=== PATIENT | female | born 1955 | race Caucasian/White ===

== ENCOUNTER 2019-09-26 04:53 | Inpatient (IN) | payer MEDICARE, OTHER, SELFPAY ==
--- NOTE | ~2019-09-26 | XR_ITS ---
EXAMINATION: XR abdomen/kub 1V DATE: 09/28/2019 05:41 INDICATION: Small bowel obstruction TECHNIQUE: A supine view of the abdomen on 2 radiographs was obtained. COMPARISON: Studies dated 09/27/2019 FINDINGS: Interval advancement of oral contrast material which is not distributed throughout the colon. Minimal dilute contrast in the small bowel. No dilated loops of bowel to suggest residual obstruction. Sever e lower lumbar facet osteoarthritis. Osteitis pubis. IMPRESSION: 1. Resolution of prior small bowel obstruction. Reviewed, dictated and finalized at location A. ATION REPORTER
--- NOTE | ~2019-09-26 | XR_ITS ---
EXAMINATION: XR abdomen NG/feed tube insert DATE: 09/26/2019 07:12 INDICATION: Nasogastric tube placement. TECHNIQUE: An upright view of the abdomen was obtained. COMPARISON: Abdomen radiographs 10/09/2018, CT abdomen and pelvis 09/26/2019 FINDINGS: The lower abdomen is excluded. There are multiple dilated loops of small bowel. The colon i s decompressed. The nasogastric tube tip is in the stomach. IMPRESSION: 1. Nasogastric tube tip in the stomach. 2. Small bowel obstruction. Reviewed, dictated and finalized at location A. DRESSER
--- NOTE | ~2019-09-26 | CT_ITS ---
EXAMINATION: CT abdomen pelvis w con DATE: 09/26/2019 05:49 INDICATION: Abdominal pain. Nausea and vomiting. TECHNIQUE: Computed tomography (CT) of the abdomen and pelvis was performed with 100 mL Omnipaque 350 intravenous contrast. Automated exposure control and iterative reconstruction technique were employe d. The dose-length product was 943.80 mGy-cm. COMPARISON: CT abdomen and pelvis 10/08/2018, 10/25/2010 FINDINGS: The visualized portions of the lung bases demonstrate mild atelectasis. No pleural effusion . The heart size is normal. No pericardial effusion. There is a small sliding hiatal hernia. There is a 7 mm cyst in the liver. The gallbladder is normal. There is splenosis in left upper quadrant. The pancreas, adrenal glands, and kidneys are normal. There is an anastomosis in the rectum. There is chr onic perirectal soft tissue and fat stranding, consistent with scarring. There are small foci of gas within the scarring, which is stable from 10/25/2010. The appendix is normal. There are multiple dilat ed loops of small bowel. There is a small bowel anastomosis in right abdomen. There is a transition p oint just distal to the anastomosis. There are 2 ventral hernias containing small bowel. There is tra ce ascites. There is a mildly enlarged left para-aortic lymph node measuring 10 x 13 mm. There is mod erate thoracic spondylosis and mild lumbar spondylosis. There is a benign bone island in T10 vertebra l body. IMPRESSION: 1. Small bowel obstruction in ileum distal to the small bowel anastomosis. 2. Two ventral hernias containing small bowel. 3. Small sliding hiatal hernia. 4. Anastomosis in the rectum with chronic perirectal scarring. Reviewed, dictated and finalized at location A. CE RUNNER
--- NOTE | ~2019-09-26 | XR_ITS ---
EXAMINATION: XR UGI water soluble w sbs DATE: 09/27/2019 12:27 INDICATION: Small bowel obstruction TECHNIQUE: Water-soluble contrast administered by the patient's existing nasogastric tube. Convention al supine abdomen radiographs and fluoroscopic spot radiographs of the stomach, and proximal small sheryl wel were obtained. Additional overhead radiographs were obtained during the transit through the small bowel. Spot fluoroscopic images of the small bowel were obtained upon contrast reaching the cecum. Fluoroscopy exposure time was 1.3 minutes. A total of 13 fluoroscopic spot images and 3 overhead radi ographs were obtained. COMPARISON: KUB dated 09/27/[address] dated 09/26/2019 FINDINGS: Nasogastric tube tip in proximal side port in the body of the stomach. Surgical clip in the left uppe r quadrant. The stomach and proximal small bowel are normal. No fixed dilated loops of small bowel to suggest obstruction. There is a normal mucosal fold pattern throughout the small bowel.Transit time from the stomach to proximal colon was approximately 20 minutes. Terminal ileum is normal. IMPRESSION: 1. Resolution of prior small bowel obstruction. Reviewed, dictated and finalized at location A. GLE PACKER
--- NOTE | ~2019-09-26 | XR_ITS ---
EXAMINATION: XR abdomen/kub 1V DATE: 09/27/2019 06:46 INDICATION: Small bowel obstruction. TECHNIQUE: A supine view of the abdomen on 2 radiographs was obtained. COMPARISON: 09/26/2019 FINDINGS: Nasogastric tube tip in the body of the stomach. Surgical clip in the left upper quadrant. A couple u nchanged loops of mildly dilated gas-filled small bowel in the central abdomen. Lung bases are clear. Heart size is normal. IMPRESSION: 1. Persistent small bowel obstruction. Reviewed, dictated and finalized at location A. ITE PROVIDER
[2019-09-26 05:02] VITALS: BP 162/92; PULSE 92; RESP 12; TEMP 36.6; O2SAT 93
--- NOTE | 2019-09-26 05:17 | ED.ABDPAIN ---
HPI - Abdominal Pain General Chief Complaint: Abdominal Pain <Tanya Valenzuela MD - Last Filed: 09/26/19 05:28> Stated Complaint: abd pain <Tanya Valenzuela MD - Last Filed: 09/26/19 05:28> Time Seen by Provider: 09/26/19 04:57 <Tanya Valenzuela MD - Last Filed: 09/26/19 05:28> Source: patient <Tanya Valenzuela MD - Last Filed: 09/26/19 05:28> Mode of arrival: ambulatory <Tanya Valenzuela MD - Last Filed: 09/26/19 05:28> Limitations: no limitations <Tanya Valenzuela MD - Last Filed: 09/26/19 05:28> History of Present Illness HPI narrative: Patient is a 63-year-old female who presents to the emergency department complaint of abdominal pain and possible bowel obstruction. Patient reports onset of symptoms last night. She reports diffuse lower abdominal pain, abdominal distention, nausea, and vomiting. Patient denies any fever but has had chills. Patient states symptoms are similar to when she has had previous small bowel obstructions. Patient has prior history of colon cancer with ileostomy, radiation and chemotherapy, hemicolectomy, and ileostomy takedown. <Tanya Valenzuela MD - Last Filed: 09/26/19 05:28> MD elicited complaint: abdominal pain <Tanya Valenzuela MD - Last Filed: 09/26/19 05:28> Onset (ago): hour(s) <Tanya Valenzuela MD - Last Filed: 09/26/19 05:28> Pain Consistency: constant <Tanya Valenzuela MD - Last Filed: 09/26/19 05:28> Location: diffuse (lower) <Tanya Valenzuela MD - Last Filed: 09/26/19 05:28> Severity: similar to previous episodes <Tanya Valenzuela MD - Last Filed: 09/26/19 05:28> Relieving factors: nothing <Tanya Valenzuela MD - Last Filed: 09/26/19 05:28> Context: confirms history of similar episodes (Small bowel obstruction) <Tanya Valenzuela MD - Last Filed: 09/26/19 05:28> Associated symptoms: nausea, vomiting and chills <Tanya Valenzuela MD - Last Filed: 09/26/19 05:28> Related Data Home Medications: Home Medications Medication Instructions Recorded Confirmed calcium carbonate 600 mg (1,500 1 tablet PO DAILY 07/16/19 mg)-vitamin D3 200 unit tablet cholecalciferol (vitamin D3) 50 2,000 unit PO DAILY 07/16/19 mcg (2,000 unit) tablet multivitamin 1 tablet PO DAILY 07/16/19 tobramycin-dexamethasone drp 09/26/19 <Tanya Valenzuela MD - Last Filed: 09/26/19 05:28> Allergies/Adverse Reactions: Allergies Allergy/AdvReac Type Severity Reaction Status Date / Time No Known Allergies Allergy Verified 09/26/19 05:34 <Tanya Valenzuela MD - Last Filed: 09/26/19 05:28> Review of Systems Review of Systems: All systems reviewed & are unremarkable except as noted in HPI and below <Tanya Valenzuela MD - Last Filed: 09/26/19 05:28> Constitutional: Constitutional: Reports chills and Denies fever(s) <Tanya Valenzuela MD - Last Filed: 09/26/19 05:28> Gastrointestinal: Gastrointestinal: Reports abdominal pain, Denies diarrhea, Reports nausea and Reports vomiting <Tanya Valenzuela MD - Last Filed: 09/26/19 05:28> [facility] Past Medical History Medical History: Medical History (Updated 09/26/19 @ 07:23 by Benito Albright MD) Colon cancer surgery 2006 History of wrist fracture Small bowel obstruction <Tanya Valenzuela MD - Last Filed: 09/26/19 05:28> Surgical History Surgical History: Surgical History (Updated 09/26/19 @ 05:22 by Tanya Valenzuela MD) H/O section H/O hemicolectomy H/O ileostomy H/O splenectomy History of open reduction and internal fixation (ORIF) procedure Right Wrist History of removal of Port-a-Cath History of total hysterectomy with bilateral salpingo-oophorectomy (BSO) <Tanya Valenzuela MD - Last Filed: 09/26/19 05:28> Social History Social History: Social History Smoking status
[2019-09-26 05:31] LABS: Basophils Percent Auto 0.3 % (0.2-1.2); Eosinophils Absolute Auto 0.1 K/mm3 (0-0.3); Eosinophils Percent Auto 0.7 % (0-4.4); Hematocrit 46.6 % (37.0-47.0); Hemoglobin 15.3 g/dL (12.0-15.0); Immature Granulocyte Absolute 0.07 K/mm3 (0.00-0.031); Immature Granulocyte Percent A 0.5 % (0-0.5); Lymphocytes Absolute Auto 2.13 K/mm3 (0.9-3.2); Lymphocytes Percent Auto 16.4 % (18.3-44.2); Mean Corpuscular HGB Conc 32.8 g/dl (32-36); Mean Corpuscular Hemoglobin 30.4 pg (26-34); Mean Corpuscular Volume 92.6 fl (80-100); Mean Platelet Volume 9.4 fl (7.4-10.4); Monocytes Absolute Auto 0.7 K/mm3 (0.1-0.6); Monocytes Percent Auto 5.2 % (2.6-8.5); Neutrophils Percent Auto 76.9 % (45.5-73.1); Platelet Count Result 296 k/mm3 (150-375); Red Blood Count 5.03 M/mm3 (4.2-5.4); Red Cell Distribution Width 13.6 % (11.5-14.5)
[2019-09-26] MEDS: ONDANSETRON INJ 4 MG/2 ML VIAL IV PUSH (05:32)
[2019-09-26] MEDS: DICYCLOMINE HCL INJ 20 MG/2 ML VIAL IM (05:32)
[2019-09-26] MEDS: LACTATED RINGERS 1,000 ML 999 ML IV CONT (05:33)
[2019-09-26 05:45] LABS: Blood Urea Nitrogen 18 mg/dL (8-26); Estimated Glomerular Filt Rate > 60
[2019-09-26 05:46] LABS: Alanine Aminotransferase 24 U/L (4-35); Alkaline Phosphatase 120 U/L (38-126); Aspartate Amino Transferase 28 U/L (14-36); Bilirubin,Total 0.4 mg/dL (0.2-1.3); Blood Urea Nitrogen 17 mg/dL (7-17); Calcium 9.9 mg/dL (8.4-10.2); Carbon Dioxide 24 mmol/L (22-30); Chloride 102 mmol/L (98-107); Estimated Glomerular Filt Rate > 60; Glucose 153 mg/dL (65-105); Lipase 113 U/L (23-300); Potassium 4.5 mmol/L (3.4-5.0); Sodium 139 mmol/L (137-145)
[2019-09-26 05:54] LABS: Lactic Acid Reflex 2.9 mmol/L (0.7-2.1)
[2019-09-26 06:25] LABS: Add Urine Microscopic? NO; Appearance Urine Clear (Clear); Bacteria Urine Trace /hpf; Bilirubin Urine Negative (Negative); Blood Urine Negative (Negative); Color Urine Yellow (Yellow); Glucose Urine UA Negative (Negative); Ketones Urine Negative (Negative); Leukocyte Esterase Ur Negative LEU/UL (Negative); Mucus Urine Rare /lpf; Nitrate Urine Negative (Negative); Protein Urine Negative (Negative); RBC Urine 0-2 /hpf (0-2); Squamous Epithelial Cell Urine Rare /hpf (Few); Urobilinogen Urine Negative mg/dL (<2.0); WBC Urine 0-3 /hpf
[2019-09-26 06:29] LABS: Specific Grav Ur 1.042 (1.001-1.035)
[2019-09-26 06:58] VITALS: BP 165/103; PULSE 81; RESP 12; O2SAT 98
--- NOTE | 2019-09-26 07:10 | PC.NURSE ---
cat, Rn assumed care of pt at this time. report was given.
[2019-09-26 07:35] VITALS: BP 160/99; PULSE 85; RESP 16; O2SAT 99
--- NOTE | 2019-09-26 08:18 | ADMGEN ---
This patient, Christina Rock, was admitted to [facility] Surg Room 330-02. Patient/family oriented to hospital policies and general routines including ID bracelet, bed and alarms, visiting hours, pain management, procedures, bathroom and other care routines, personal items, smoking policy, room service/diet, and visiting hours. Valuables list has been completed. Information on how to activate the Rapid Response Team has been discussed. Patient/Family are encouraged to report perceived risks to care and to ask questions if they do not understand what they are told or what they should do.
[2019-09-26 08:30] VITALS: BP 154/91; PULSE 82; RESP 16; TEMP 36.8; O2SAT 93
[2019-09-26 08:39] LABS: Reflex Lactic Acid Yes or No Add Lactic
[2019-09-26] MEDS: LACTATED RINGERS 1,000 ML 125 ML IV CONT ×2 (10:06→18:09)
--- NOTE | 2019-09-26 11:01 | PM.IMHP ---
H&P: HPI History of Present Illness Chief complaint: SBO Narrative: Christina Rock is a 63 year old female with a history of recurrent small bowel obstruction. She also a history of colo-rectal cancer status post colorectal resection with protective ileostomy in 2005 with subsequent ileostomy takedown several months later. She presented to the ED with complaints of abdominal pain, nausea, and vomiting. The patient was diagnosed with rectal cancer and had resection in 2005. She states that once her ileostomy was taken down, she has had multiple episodes of small bowel obstructions mostly at the area of the ileal anastomosis as seen by CT. The last episode requiring hospitalization about 12 months ago. She reports that yesterday she ate a soup with chunks of cabbage and vegetables in it for lunch. she stated that after that she seemed to be okay but then last evening she went to a republican for a birthday and also ate some [place] food including some tamales with fibrous corn covering finishing at about 6:00 p.m. Then last night at about 10:00 p.m. as she started to get ready for bed she noted that she started to feel a mild pain in the mid-upper abdomen that was waxing and waning. The pain continued to worsen throughout the night and became severe with increased bloating and some vomiting between midnight and 0430. She then decided to present to the ED. She states her symptoms were similar to her bowel obstructions in the past. Workup in the emergency room last night revealed mildly elevated white count otherwise fairly normal labs. CT scan of the abdomen and pelvis revealed dilated loops of small bowel proximal to the area where yuliya can be seen consistent with her ileostomy takedown site on the distal small bowel. She does have some ventral incisional hernias in the midline but these did not appear to be causing any obstruction with bowel loops that were dilated going both in and out of the areas. Pt denies recent fevers, chills, or diarrhea. She states diarrhea is normal for her after eating dairy but otherwise no diarrhea. Last BM was Yesterday morning. Upon presentation to the ED, a CT scan of the abdomen and pelvis showed a small bowel obstruction in the area of anastomosis at the distal ileum, 2 fairly large ventral hernias containing bowel, a small sliding hiatal hernia, and an anastomosis in the rectum with perirectal scarring. WBC on admission was 13,000. Patient denies any other sick symptoms, including congestion, cough, sore throat, shortness of breath, urinary symptoms, or recent diarrhea. At my vist today the patient is still having mild abdominal distention and abdominal pain at rest. Denies nausea or vomiting, since arriving at the ED and the NG tube is in place with nothing in the canister at this time here in her room. Review of Systems Constitutional: Constitutional: Reports as per HPI and Denies headache(s) Eyes: Eyes: Denies loss of vision and Denies eye pain ENT: Reports Normal hearing present, Denies change in voice, Denies dizziness and Denies headache(s) Cardiovascular: Cardiovascular: Denies chest pain and Denies dyspnea Respiratory: Respiratory: Denies dyspnea and Denies wheezing Gastrointestinal: Gastrointestinal: Reports as per HPI, Reports abdominal pain and Reports GI cramping Comments: history of obesity with weight stable at current weight for least a year 2. Musculoskeletal: Musculoskeletal: Denies back pain and Denies arthralgias Neurologic: Reports Normal hearing present, Denies dizziness, Denies headache(s), Denies loss of vision and Denies memory loss Psychiatric: Psychiatric: Denies memory loss and Denies panic attacks Endocrine: Endocrine: Reports no additional endocrine complaints Hematologic/Lymphatic: Hematologic/Lymphatic: Reports no additional hematologic/lymphatic complaints Allergic/Immunologic: Allergic/Immunologic: Denies wheezing PMFSH Past Medical History Medical His
[2019-09-26 14:00] VITALS: BP 148/81; PULSE 92; RESP 6; TEMP 36.3; O2SAT 96
[2019-09-26] MEDS: MORPHINE SULFATE 2 MG/ML INJ 4 MG IV PUSH (17:19)
[2019-09-26 22:00] VITALS: BP 127/72; PULSE 85; RESP 16; TEMP 37.5; O2SAT 93
[2019-09-27] MEDS: LACTATED RINGERS 1,000 ML 100 ML IV CONT (03:52)
[2019-09-27 06:00] VITALS: BP 115/79; PULSE 86; RESP 16; TEMP 36.9; O2SAT 91
[2019-09-27 06:28] LABS: Basophils Percent Auto 0.3 % (0.2-1.2); Eosinophils Absolute Auto 0.1 K/mm3 (0-0.3); Eosinophils Percent Auto 1.4 % (0-4.4); Hematocrit 38.6 % (37.0-47.0); Hemoglobin 12.6 g/dL (12.0-15.0); Immature Granulocyte Absolute 0.04 K/mm3 (0.00-0.031); Immature Granulocyte Percent A 0.4 % (0-0.5); Lymphocytes Absolute Auto 2.84 K/mm3 (0.9-3.2); Lymphocytes Percent Auto 30.6 % (18.3-44.2); Mean Corpuscular HGB Conc 32.6 g/dl (32-36); Mean Corpuscular Hemoglobin 30.3 pg (26-34); Mean Corpuscular Volume 92.8 fl (80-100); Mean Platelet Volume 9.2 fl (7.4-10.4); Monocytes Absolute Auto 0.7 K/mm3 (0.1-0.6); Monocytes Percent Auto 7.1 % (2.6-8.5); Neutrophils Absolute Auto 5.6 K/mm3 (1.3-6.7); Neutrophils Percent Auto 60.2 % (45.5-73.1); Platelet Count Result 237 k/mm3 (150-375); Red Blood Count 4.16 M/mm3 (4.2-5.4); Red Cell Distribution Width 13.7 % (11.5-14.5); White Blood Count 9.3 K/mm3 (4.5-10.0)
[2019-09-27 06:48] LABS: Blood Urea Nitrogen 13 mg/dL (7-17); Calcium 8.8 mg/dL (8.4-10.2); Carbon Dioxide 28 mmol/L (22-30); Chloride 100 mmol/L (98-107); Estimated CRCL calculation 67 ml/min; Estimated Glomerular Filt Rate > 60; Glucose 106 mg/dL (65-105); Magnesium 1.9 mg/dL (1.6-2.3); Potassium 3.9 mmol/L (3.4-5.0); Sodium 136 mmol/L (137-145)
--- NOTE | 2019-09-27 10:46 | PM.PNGS ---
Progress Note: A&P Assessment and Plan (1) Small bowel obstruction: Onset Date: ~09/26/19 Code(s): K56.609 - Unspecified intestinal obstruction, unspecified as to partial versus complete obstruction Status: Acute Assessment and Plan: abdominal pain is gone. Plain films look much better. Patient has active normal bowel sounds. Will get Gastrografin upper GI small-bowel follow-through. If goes through with relatively normal transit, DC NG and start oral intake. Doing well. Subjective Subjective Date/Time Seen: 09/27/19 10:46 Patient reports: no new complaints, pain is less ( No abdominal pain), no flatus and no bowel movement Review of Systems Review of Systems: All systems reviewed & are unremarkable except as noted in HPI and below Constitutional: Constitutional: Denies headache(s) ENT: Denies headache(s) Cardiovascular: Cardiovascular: Denies chest pain and Denies dyspnea Respiratory: Respiratory: Denies cough and Denies dyspnea Gastrointestinal: Gastrointestinal: Reports as per HPI Neurologic: Denies confusion and Denies headache(s) Psychiatric: Psychiatric: Denies confusion Exam Const: General: comfortable and no acute distress; No confusion Orientation/consciousness: patient oriented x3 and No confusion Resp: Effort & Inspection: normal respiratory effort Auscultation: clear to auscultation bilaterally Cardio: Rate: regular rate Rhythm: regular rhythm GI: Inspection: non-distended, obesity and visible herniation GI Palp: Yes Soft to palpation, No Tenderness to palpation present (GI), No Guarding due to palpation present (GI) and No Rebound tenderness present Auscultation: normal bowel sounds Neuro: General: patient oriented x3, no focal motor deficits and No confusion Extrem: General: no calf tenderness and no edema Psych: Affect: normal affect Insight: Good insight present (Psych) Judgement: Good judgement present (Psych) Objective Data Vital Signs Vital Signs: Vital Signs - 24 hr 09/26/19 14:00 09/26/19 22:00 09/27/19 06:00 Temperature 36.3 C L 37.5 C 36.9 C Pulse Rate 92 85 86 Respiratory Rate 6 L 16 16 Blood Pressure 148/81 H 127/72 115/79 Pulse Oximetry 96 93 91 Intake/Output Intake/Output: Intake & Output 09/24/19 09/25/19 09/26/19 09/27/19 23:59 23:59 23:59 23:59 Intake Total 2100 1100 Output Total 550 1150 Balance 1550 -50 Meds/Results Medications: Active Medications Generic Name Dose Route Start Last Admin Trade Name Raj PRN Reason Stop Dose Admin Lactated Ringer's 1,000 mls @ 60 mls/hr 09/26/19 06:45 09/27/19 03:52 Lr - Lactated Ringers Iv IV CONT 100 mls/hr .[id number] RUTH Administration Morphine Sulfate 4 mg 09/26/19 10:01 09/26/19 17:19 Morphine Sulfate Inj IV PUSH 4 mg Q4H PRN Administration Pain Rated 7-10 Morphine Sulfate 2 mg 09/26/19 10:59 Morphine Sulfate Inj IV PUSH Q4H PRN Pain Rated 4-6 Naloxone HCl 0.1 mg 09/26/19 10:01 Narcan IV PUSH Q2M PRN Opiate Reversal Ondansetron HCl 4 mg 09/26/19 10:01 Zofran Inj IV PUSH Q6H PRN Nausea And Vomiting Radiology Results: ITS Impressions Abdomen/Pelvis CT 09/26/19 06:50 IMPRESSION: 1. Small bowel obstruction in ileum distal to the small bowel anastomosis. 2. Two ventral hernias containing small bowel. 3. Small sliding hiatal hernia. 4. Anastomosis in the rectum with chronic perirectal scarring. Abdomen X-Ray 09/27/19 08:29 IMPRESSION: 1. Persistent small bowel obstruction. Labs Labs: Laboratory Results - last 24 hr 09/27/19 09/27/19 06:14 06:14 WBC 9.3 RBC 4.16 L Hgb 12.6 Hct 38.6 MCV 92.8 MCH 30.3 MCHC 32.6 RDW 13.7 Plt Count 237 MPV 9.2 Immature Gran % (Auto) 0.4 Neut % (Auto) 60.2 Lymph % (Auto) 30.6 [place] % (Auto) 7.1 Eos % (Auto) 1.4 Baso % (Auto) 0.3 Lymph # (Auto) 2.84 [place] # (Auto) 0.7 H Eos # (Auto) 0.1
[2019-09-27 14:37] VITALS: BP 128/72; PULSE 86; RESP 16; TEMP 37.8; O2SAT 98
[2019-09-27] MEDS: LACTATED RINGERS 1,000 ML 60 ML IV CONT (16:55)
[2019-09-27 20:00] VITALS: BP 145/77; PULSE 94; RESP 20; TEMP 38.3; O2SAT 95
[2019-09-28] MEDS: LACTATED RINGERS 1,000 ML 60 ML IV CONT (08:05)
--- NOTE | 2019-09-28 09:05 | PM.DS ---
DS: Diagnosis Admitting Diagnosis Admitting Diagnosis: Small bowel obstruction Discharge Diagnosis (1) Small bowel obstruction: Onset Date: ~09/26/19 Code(s): K56.609 - Unspecified intestinal obstruction, unspecified as to partial versus complete obstruction Status: Resolved (2) Other obesity due to excess calories: Onset Date: Unknown Code(s): E66.09 - Other obesity due to excess calories Status: Chronic (3) Personal history of malignant neoplasm of large intestine: Onset Date: ~09/14/05 Code(s): Z85.038 - Personal history of other malignant neoplasm of large intestine Status: Chronic DS: Summary Time Spent with Patient Time attestation: Total time spent providing and/or coordinating discharge services: patient is a 63-year-old woman who presented with abdominal pain and findings of a partial small-bowel obstruction on September 26, 2019. She was admitted and an NG tube was placed. She has a history of previous colon resection for cancer. She has had small-bowel obstructions in the past. With NG suction, patient had significant improvement in her symptoms. By September 27, she was pain free. She had a Gastrografin upper GI small-bowel follow-through on September 27. This went through with quite rapid transit and several bowel movements following. She was started on solid food and tolerated it well. She was able to be discharged on September 28 in good condition. Pain-free and feeling much better. Exam GI: Inspection: non-distended, incision and visible herniation GI Palp: Yes Soft to palpation, No Tenderness to palpation present (GI) and Yes Hernia present ( Incisional. Reducible) Auscultation: normal bowel sounds Discharge Plan Discharge Attending physician on discharge: Hai Marshall Discharging Clinician: Wilfred Aguilar Anticipated Discharge Date/Time: 09/28/19 09:10 Patient Disposition: Home, Self-Care Activity: as tolerated Diet: regular Patient Instructions: Antibiotic Form, Pain Management (DC), Bowel Obstruction (DC) Stand Alone Forms: General Discharge Information Follow-up/Referrals: Shane Perez MD [Primary Care Provider] - Keep Reg. Scheduled Appt. ( no need for for surgical follow-up) Discharge Medications: Continued cholecalciferol (vitamin D3) 2,000 unit tablet 2,000 unit PO DAILY RF: 0 multivitamin Tablet 1 tablet PO DAILY RF: 0 calcium carbonate-vitamin D3 [Calcium 600 + D(3)] 600 mg(1,500mg) -200 unit tablet 1 tablet PO DAILY RF: 0 Date of admission: 09/26/19 06:42 Primary Care Provider: Shane Perez Admitting Provider: Hai Marshall Attending physician on admission: Hai Marshall Condition: Stable
== END 2019-09-28 09:15 | disposition home or self-care (01) | DRG 390 ==
LOC: ANHED 05:12 → ANH3MEDSUR 07:23
PROVIDERS: Admitting Provider Surgery; Emergency Provider Emergency Medicine; PCP Family Medicine; Visit Provider Surgery
DX: K56.609 Unspecified intestinal obstruction, unspecified as to partial versus complete obstruction (principal); Z85.038 Personal history of other malignant neoplasm of large intestine; Z90.710 Acquired absence of both cervix and uterus; Z90.81 Acquired absence of spleen; E66.09 Other obesity due to excess calories; Z68.34 Body mass index [BMI] 34.0-34.9, adult
CPT/HCPCS: 36415; 74018; 74177; 74240; 74248; 80048; 80053; 81003; 83605; 83690; 83735; 85025; 96361; 96372; 96374; 96375; 99285; J0131; J0500; J2270; J2405; J7120; Q9967

== ENCOUNTER 2020-04-10 06:27 | Inpatient (IN) | payer MEDICARE, OTHER, SELFPAY ==
[2020-04-10] VITALS (7 sets, daily range): BP systolic 126–180; BP diastolic 65–98; PULSE 69–93; RESP 16–18; TEMP 36.1–36.9; O2SAT 96–99; BMI 36.6
--- NOTE | ~2020-04-10 | XR_ITS ---
EXAMINATION: XR sm bowel follow through DATE: 04/12/2020 09:21 INDICATION: Small bowel obstruction TECHNIQUE: Crew Foreman radiograph was obtained. Water-soluble contrast was administered through the nasogas tric tube and sequential radiographs of the abdomen were obtained until oral contrast was noted to be in the proximal colon. Spot fluoroscopic images of the small bowel were obtained. Fluoroscopy exposu re time was 1.2 minutes. The DAP for this procedure was 86.225 Gycm2. Five images are obtained. COMPARISON: None. FINDINGS: Crew Foreman radiograph demonstrates a nasogastric tube in the stomach. There is a moderate volume of colonic stool Transit time from the stomach to proximal colon was less than 15 minutes. There is normal caliber and mucosal fold pattern throughout the small bowel. Terminal ileum is normal. No tet donny or abnormal mass effect observed upon the small bowel with real-time fluoroscopy. IMPRESSION: 1. No evidence of small bowel obstruction. Reviewed, dictated and finalized at location A.
--- NOTE | ~2020-04-10 | XR_ITS ---
EXAMINATION: XR abdomen NG/feed tube insert DATE: 04/10/2020 09:15 INDICATION: Small bowel obstruction. Nasogastric tube placement. TECHNIQUE: A supine view of the abdomen and lower chest was obtained for evaluation of feeding tube placement. COMPARISON: [facility] dated 09/28/[address] dated 04/10/2020 FINDINGS: Nasogastric tube tip in the body of the stomach with proximal side-port near the level of the gastroe sophageal junction. Surgical clip in the left upper quadrant. Excreted contrast in the normal-appeari ng bilateral renal collecting systems from recent prior contrast enhanced CT. No dilated loops of gas -filled bowel appreciated in the visualized abdomen. Small focus of atelectasis/scarring at the left costophrenic angle. No pulmonary edema, pleural effusion or pneumothorax. Heart size is normal. IMPRESSION: 1. Nasogastric tube in stomach. Consider advancement by 2-[address] the proximal side-port defini tively below the level of the gastroesophageal junction. Reviewed, dictated and finalized at location A. IMPRESSION: 1. Nasogastric tube in stomach. Consider advancement by 2-[address] the pro ximal side-port definitively below the level of the gastroesophageal junction.
--- NOTE | ~2020-04-10 | CT_ITS ---
EXAMINATION: CT abdomen pelvis w con DATE: 04/10/2020 08:01 INDICATION: Abdominal pain and distention. TECHNIQUE: Computed tomography (CT) of the abdomen and pelvis was performed with 100 mL Omnipaque-350 intravenous contrast. Automated exposure control and iterative reconstruction technique were employe d. The dose-length product was 1044.42 mGy-cm. COMPARISON: 09/26/2019 FINDINGS: Peripheral reticular opacities in the dependent lungs most likely dependent atelectasis versus less l ikely mild pulmonary edema. Heart size is normal. No pericardial or pleural effusion. Small sliding-t ype hiatal hernia. 7 mm hepatic cyst. Gallbladder, pancreas, bilateral adrenal glands and kidneys are normal. Splenosis in the left upper quadrant. Again seen are multiple dilated loops of small bowel e xtending to a transition point located immediately distal to a small bowel anastomosis in the right l ower quadrant. A few loops of the dilated small bowel extend into a couple ventral hernias. There is a small amount of ascites. Additional anastomosis at the rectum with no significant change in the pos terior perirectal/presacral soft tissue and fat stranding likely related to scarring along with a few small foci of gas which can be seen dating back to 2010. Unchanged mild likely reactive mesenteric a nd left para-aortic lymphadenopathy. No pathologically enlarged lymph nodes. Mild thoracolumbar spond ylosis with severe facet osteoarthritis in the lower lumbar spine. IMPRESSION: 1. Recurrent small bowel obstruction at the same transition point immediately distal to a small bowel anastomosis in the right lower quadrant. 2. Two ventral hernias containing loops of the dilated bowel. 3. Small sliding-type hiatal hernia. 4. Stable appearance of chronic perirectal/presacral scarring at the site of a rectal anastomosis. Reviewed, dictated and finalized at location A. IMPRESSION: 1. Recurrent small bowel obstruction at the same transition point immediately d istal to a small bowel anastomosis in the right lower quadrant. 2. Two ventral hernias containing loops of the dilated bowel. 3. Small sliding-type hiatal hernia. 4. Stable appearance of chronic perirectal/presacral scarring at the site of a rectal anastomosis.
--- NOTE | ~2020-04-10 | XR_ITS ---
EXAMINATION: XR abdomen obstructive series DATE: 04/11/2020 05:56 INDICATION: Small bowel obstruction TECHNIQUE: Frontal supine and upright views of the abdomen were obtained. COMPARISON: None. FINDINGS: Nasogastric tube tip in proximal side port in the body of the stomach. Surgical clip in the left uppe r quadrant. No dilated gas-filled loops of bowel. No free intraperitoneal gas. Persistent opacities likely related to atelectasis/scarring at the eft costophrenic angle. IMPRESSION: 1. No free intraperitoneal gas or dilated gas-filled loops of bowel to suggest obstruction. Of note the dilated small bowel on prior CT was predominantly fluid-filled. Reviewed, dictated and finalized at location A. IMPRESSION: 1. No free intraperitoneal gas or dilated gas-filled loops of bowel to suggest obstruction. Of note the dilated small bowel on prior CT was predominantly flu id-filled.
--- NOTE | 2020-04-10 07:03 | ED.ABDPAIN ---
HPI - Abdominal Pain General Chief Complaint: Abdominal Pain Stated Complaint: abd pain, nausea Time Seen by Provider: 04/10/20 07:03 Source: patient and family Mode of arrival: ambulatory Limitations: no limitations History of Present Illness HPI narrative: Patient is a 64-year-old female with a history of colon cancer, colon resection, history of multiple small bowel obstructions who presents for evaluation of abdominal pain and distention. Patient states pain began around 10 PM yesterday evening, now described as sharp, stabbing in nature throughout the abdomen. She has been vomiting multiple times, nonbilious, nonbloody. She reports current dry heaving that she has had inability to tolerate oral intake for over 10 hours. Patient denies any flatus, last bowel movement was yesterday. She states this feels similar to previous bowel obstructions. Patient is currently not on any chemotherapy or radiation regimen. Related Data Home Medications Medication Instructions Recorded Confirmed calcium carbonate 600 mg (1,500 1 tablet PO DAILY 07/16/19 09/26/19 mg)-vitamin D3 200 unit tablet cholecalciferol (vitamin D3) 50 2,000 unit PO DAILY 07/16/19 09/26/19 mcg (2,000 unit) tablet multivitamin 1 tablet PO DAILY 07/16/19 09/26/19 Allergies Allergy/AdvReac Type Severity Reaction Status Date / Time No Known Allergies Allergy Verified 04/10/20 06:52 Review of Systems Review of Systems: Narrative: CONSTITUTIONAL: Denies fever, chills ENT: Denies rhinorrhea, congestion CARDIOVASCULAR: Denies chest pain RESPIRATORY: Denies cough or dyspnea. GASTROINTESTINAL: Reports abdominal pain, nausea and vomiting GENITOURINARY: Denies dysuria or hematuria. SKIN: Denies rash or itching. MUSCULOSKELETAL: Denies back pain, joint pain, or myalgia. NEUROLOGIC: Denies headache PMFSH Past Medical History Medical History Colon cancer surgery 2005 History of wrist fracture Small bowel obstruction Surgical History Surgical History H/O section H/O hemicolectomy H/O ileostomy H/O splenectomy History of open reduction and internal fixation (ORIF) procedure Right Wrist History of removal of Port-a-Cath History of total hysterectomy with bilateral salpingo-oophorectomy (BSO) Family History Family History Mother Carcinoma of colon Family history of malignant neoplasm of breast in first degree relative Family history of malignant neoplasm of ovary Father Malignant neoplasm of prostate, Onset Age: 74 Grandparent Family history of malignant neoplasm of breast Other No family history of cardiovascular disease No family history of hypertension Social History Social History Smoking status: Never smoker Alcohol intake: current Drinks per week: 1 Substance use: never Gender identity (if verbalized by the patient): Female Spiritual care concerns: No Agree to blood products: Yes Exam Narrative: Exam Narrative: GENERAL: Awake, uncomfortable, tearful HEAD: Normocephalic, atraumatic. EYES: PERRLA and EOMI. ENT: Nares clear, no rhinorrhea or epistaxis. Mucous membranes moist. NECK: Supple. CHEST: No respiratory distress, breathing even and non labored HEART: Regular rate, sinus rhythm ABDOMEN: Mild distention, diffusely tender to palpation throughout abdomen, positive guarding EXTREMITIES: Normal range of motion. No edema. SKIN: Warm, dry, no rash. NEURO:No focal deficits. Alert and oriented x3 Course Vital Signs Vital signs: Vital Signs Temperature 36.1 C L 04/10/20 06:33 Pulse Rate 69 04/10/20 06:33 Respiratory Rate 18 04/10/20 06:33 Blood Pressure 141/93 H 04/10/20 06:33 Pulse Oximetry 96 04/10/20 06:33 Temperature 36.1 C L 04/10/20 06:33 Pulse R
[2020-04-10 07:17] LABS: Basophils Absolute Auto 0.1 K/mm3 (0.0-0.1); Basophils Percent Auto 0.3 % (0.2-1.2); Eosinophils Percent Auto 0.2 % (0-4.4); Hematocrit 46.7 % (37.0-47.0); Hemoglobin 15.7 g/dL (12.0-15.0); Immature Granulocyte Absolute 0.14 K/mm3 (0.00-0.031); Immature Granulocyte Percent A 0.7 % (0-0.5); Lymphocytes Absolute Auto 2.18 K/mm3 (0.9-3.2); Lymphocytes Percent Auto 11.7 % (18.3-44.2); Mean Corpuscular HGB Conc 33.6 g/dl (32-36); Mean Corpuscular Hemoglobin 30.6 pg (26-34); Mean Platelet Volume 9.6 fl (7.4-10.4); Monocytes Absolute Auto 0.6 K/mm3 (0.1-0.6); Monocytes Percent Auto 3.4 % (2.6-8.5); Neutrophils Absolute Auto 15.7 K/mm3 (1.3-6.7); Neutrophils Percent Auto 83.7 % (45.5-73.1); Platelet Count Result 303 k/mm3 (150-375); Red Blood Count 5.13 M/mm3 (4.2-5.4); Red Cell Distribution Width 13.5 % (11.5-14.5); White Blood Count 18.7 K/mm3 (4.5-10.0)
[2020-04-10] MEDS: SODIUM CHLORIDE 0.9% IV 1,000 ML 999 ML IV CONT ×2 (07:22→09:00)
[2020-04-10] MEDS: ONDANSETRON INJ 4 MG/2 ML VIAL IV PUSH (07:22)
[2020-04-10 07:29] LABS: Lactic Acid Reflex 2.4 mmol/L (0.7-2.1)
[2020-04-10 07:30] LABS: Alanine Aminotransferase 23 U/L (4-35); Albumin Level 4.6 g/dL (3.5-5.1); Alkaline Phosphatase 109 U/L (38-126); Anion Gap 12 mmol/L (8-16); Aspartate Amino Transferase 29 U/L (14-36); Bilirubin,Total 0.7 mg/dL (0.2-1.3); Blood Urea Nitrogen 19 mg/dL (7-17); Calcium 9.9 mg/dL (8.4-10.2); Carbon Dioxide 21 mmol/L (22-30); Chloride 104 mmol/L (98-107); Estimated Glomerular Filt Rate > 60; Glucose 178 mg/dL (65-105); Lipase 87 U/L (23-300); Potassium 4.6 mmol/L (3.4-5.0); Sodium 137 mmol/L (137-145)
[2020-04-10] MEDS: METOCLOPRAMIDE HCL INJ 10 MG/2 ML VIAL IV PUSH (09:03)
[2020-04-10 09:45] LABS: Add Urine Microscopic? YES; Appearance Urine Clear (Clear); Bacteria Urine Trace /hpf; Bilirubin Urine Negative (Negative); Blood Urine Negative (Negative); Color Urine Yellow (Yellow); Glucose Urine UA Negative (Negative); Ketones Urine Negative (Negative); Leukocyte Esterase Ur Negative LEU/UL (Negative); Mucus Urine Rare /lpf; Nitrate Urine Positive (Negative); Protein Urine Negative (Negative); RBC Urine 0-2 /hpf (0-2); Squamous Epithelial Cell Urine Occasional /hpf (Few); Urobilinogen Urine Negative mg/dL (<2.0); WBC Urine 0-3 /hpf
[2020-04-10 10:15] LABS: Reflex Lactic Acid Yes or No Add Lactic
--- NOTE | 2020-04-10 10:45 | PC.NURSE ---
This patient, Christina Rock, was admitted to Medical Room 249-01. Patient/family oriented to hospital policies and general routines including ID bracelet, bed and alarms, visiting hours, pain management, procedures, bathroom and other care routines, personal items, smoking policy, room service/diet, and visiting hours. Valuables list has been completed. Information on how to activate the Rapid Response Team has been discussed. Patient/Family are encouraged to report perceived risks to care and to ask questions if they do not understand what they are told or what they should do.
[2020-04-10] MEDS: SODIUM CHLORIDE 0.9% IV 1,000 ML 125 ML IV CONT ×2 (10:57→20:53)
--- NOTE | 2020-04-10 11:41 | PM.IMHP ---
H&P: HPI History of Present Illness Date/Time: 04/10/20 11:41 Chief complaint: SBO Narrative: Christina Rock is a 64 year old female Who presented to the emergency department today with abdominal pain with nausea and vomiting. She began experiencing bloating with nausea last night after eating dinner. She states that her bowels had been moving normally leading up to this. She does not recall anything abnormal that she ate this time. She has had bowel obstructions in the past. Her most recent bowel obstruction was 6 months ago which resolved with conservative measures. She has a history of colon cancer and underwent low anterior resection with ileostomy at [facility] in 2005. She subsequently had the ileostomy reversed. She has had several bowel obstructions in the past and also has an incisional hernia. CT in the emergency department this morning showed evidence of small-bowel obstruction at the small-bowel anastomosis. NG tube was placed and she was admitted for further treatment. Review of Systems Review of Systems: All systems reviewed & are unremarkable except as noted in HPI and below Constitutional: Constitutional: Denies chills and Denies fever(s) Eyes: Eyes: Denies change in vision ENT: Denies hearing loss, Denies neck pain and Denies sore throat Cardiovascular: Cardiovascular: Denies chest pain and Denies dyspnea Respiratory: Respiratory: Denies cough, Denies dyspnea and Denies wheezing Gastrointestinal: Gastrointestinal: Reports as per HPI, Reports abdominal pain, Reports bloating, Reports nausea and Reports vomiting Genitourinary: Genitourinary: Denies hematuria and Denies dysuria Musculoskeletal: Musculoskeletal: Denies arthralgias, Denies joint swelling and Denies neck pain Allergic/Immunologic: Allergic/Immunologic: Denies wheezing [facility] Past Medical History Medical History Colon cancer surgery 2005 History of wrist fracture Small bowel obstruction Surgical History Surgical History H/O section H/O hemicolectomy H/O ileostomy H/O splenectomy History of open reduction and internal fixation (ORIF) procedure Right Wrist History of removal of Port-a-Cath History of total hysterectomy with bilateral salpingo-oophorectomy (BSO) Family History Family History Mother Family history of malignant neoplasm of ovary Family history of malignant neoplasm of breast in first degree relative Carcinoma of colon Colon cancer Father Malignant neoplasm of prostate, Onset Age: 74 Grandparent Family history of malignant neoplasm of breast Other No family history of cardiovascular disease No family history of hypertension Social History Social History Smoking status: Never smoker Alcohol intake: current Drinks per week: 1 Substance use: never Gender identity (if verbalized by the patient): Female Spiritual care concerns: No Agree to blood products: Yes Meds Home Medications and Allergies Home Medications Medication Instructions Recorded Confirmed Type calcium carbonate 600 mg (1,500 1 tablet PO DAILY 07/16/19 04/10/20 History mg)-vitamin D3 200 unit tablet cholecalciferol (vitamin D3) 50 2,000 unit PO DAILY 07/16/19 04/10/20 History mcg (2,000 unit) tablet multivitamin 1 tablet PO DAILY 07/16/19 04/10/20 History Allergies Allergy/AdvReac Type Severity Reaction Status Date / Time No Known Allergies Allergy Verified 04/10/20 11:10 Vital Signs Vital Signs - 24 hr 04/10/20 06:33 04/10/20 10:57 Temperature 36.1 C L 36.9 C Pulse Rate 69 89 Respiratory Rate 18 17 Blood Pressure 141/93 H 152/79 H Pulse Oximetry 96 97 Exam Const: General: alert; No acute distress Orientation/consciousness: patient oriented
--- NOTE | 2020-04-11 00:12 | PC.NURSE ---
Pt requested something for sleep. Benadryl ivp was ordered. Pt was sleeping multiple times rounding after Dr. Ramos ordered Benadryl. Pt just woke up offered Benadryl and she said, I'm actually sleeping pretty good
[2020-04-11] MEDS: SODIUM CHLORIDE 0.9% IV 1,000 ML 125 ML IV CONT (02:04)
[2020-04-11 06:00] VITALS: BP 157/83; PULSE 76; RESP 16; TEMP 36.6; O2SAT 93
[2020-04-11 06:03] LABS: Hematocrit 38.7 % (37.0-47.0); Hemoglobin 12.7 g/dL (12.0-15.0); Mean Corpuscular HGB Conc 32.8 g/dl (32-36); Mean Corpuscular Hemoglobin 30.6 pg (26-34); Mean Corpuscular Volume 93.3 fl (80-100); Mean Platelet Volume 9.6 fl (7.4-10.4); Platelet Count Result 245 k/mm3 (150-375); Red Blood Count 4.15 M/mm3 (4.2-5.4); Red Cell Distribution Width 13.6 % (11.5-14.5); White Blood Count 10.3 K/mm3 (4.5-10.0)
[2020-04-11 06:27] LABS: Potassium 3.7 mmol/L (3.4-5.0)
[2020-04-11 06:33] LABS: Anion Gap 6 mmol/L (8-16); Blood Urea Nitrogen 12 mg/dL (7-17); Calcium 8.4 mg/dL (8.4-10.2); Carbon Dioxide 29 mmol/L (22-30); Chloride 104 mmol/L (98-107); Estimated CRCL calculation 68 ml/min; Estimated Glomerular Filt Rate > 60; Glucose 101 mg/dL (65-105); Sodium 139 mmol/L (137-145)
--- NOTE | 2020-04-11 10:47 | PM.PNGS ---
Progress Note: A&P Assessment and Plan (1) Small bowel obstruction: Code(s): K56.609 - Unspecified intestinal obstruction, unspecified as to partial versus complete obstruction Status: Acute Assessment and Plan: Reviewed Xray this AM. More output from NG now, but no bowel function yet. Will continue NG decompression today. Gastrografin SBFT tomorrow. Discussed surgical exploration if there is a persistent obstruction. (2) Incisional hernia: Code(s): K43.2 - Incisional hernia without obstruction or gangrene Status: Acute (3) Personal history of malignant neoplasm of large intestine: Onset Date: ~09/14/05 Code(s): Z85.038 - Personal history of other malignant neoplasm of large intestine Status: Chronic Subjective Subjective Date/Time Seen: 04/11/20 10:47 No BM or Flatus. Slight abdominal pain. Exam GI: Inspection: obesity and scar GI Palp: Yes Soft to palpation, Yes Tenderness to palpation present (GI) (periumbilical) and No Guarding due to palpation present (GI) Auscultation: Hypoactive bowel sounds present Objective Data Vital Signs Vital Signs: Vital Signs - 24 hr 04/10/20 10:57 04/10/20 14:00 04/10/20 22:00 Temperature 36.9 C 36.8 C 36.6 C Pulse Rate 89 93 83 Respiratory Rate 17 17 16 Blood Pressure 152/79 H 142/75 H 126/65 Pulse Oximetry 97 97 97 04/11/20 06:00 Temperature 36.6 C Pulse Rate 76 Respiratory Rate 16 Blood Pressure 157/83 H Pulse Oximetry 93 Intake/Output Intake/Output: Intake & Output 04/08/20 04/09/20 04/10/20 04/11/20 23:59 23:59 23:59 23:59 Intake Total 3150 1680 Output Total 675 1000 Balance 5526 680 Meds/Results Medications: Active Medications Generic Name Dose Route Start Last Admin Trade Name Freq PRN Reason Stop Dose Admin Hydromorphone HCl 0.5 mg 04/10/20 09:12 Dilaudid Inj IV PUSH Q4H PRN Pain Rated 7-10 Potassium Chloride 10 meq/ 1,000 mls @ 100 mls/hr 04/11/20 10:50 Dextrose/Sodium Chloride IV CONT .Q10H RUTH Ondansetron HCl 4 mg 04/10/20 09:12 Zofran Inj IV PUSH Q4H PRN Nausea Radiology Results: ITS Impressions Abdomen/Pelvis CT 04/10/20 08:11 IMPRESSION: 1. Recurrent small bowel obstruction at the same transition point immediately distal to a small bowel anastomosis in the right lower quadrant. 2. Two ventral hernias containing loops of the dilated bowel. 3. Small sliding-type hiatal hernia. 4. Stable appearance of chronic perirectal/presacral scarring at the site of a rectal anastomosis. Abdomen X-Ray 04/11/20 08:03 IMPRESSION: 1. No free intraperitoneal gas or dilated gas-filled loops of bowel to suggest obstruction. Of note the dilated small bowel on prior CT was predominantly fluid-filled. Labs Labs: Laboratory Results - last 24 hr 04/10/20 04/11/20 04/11/20 11:54 05:17 05:17 WBC 10.3 H RBC 4.15 L Hgb 12.7 D Hct 38.7 MCV 93.3 MCH 30.6 MCHC 32.8 RDW 13.6 Plt Count 245 MPV 9.6 Sodium 139 Potassium 3.7 Chloride 104 Carbon Dioxide 29 Anion Gap 6 L BUN 12 D Creatinine 0.80 Estim Creat Clear Calc 68 Estimated GFR > 60 Glucose 101 Lactic Acid 2.0 Calcium 8.4
[2020-04-11] MEDS: POTASSIUM CHLORIDE INJ 10 MEQ in DEXTROSE 5%/0.45% SOD CHL 1,000 ML 100 MEQ IV CONT ×2 (11:28→23:48)
[2020-04-11 14:00] VITALS: BP 163/97; PULSE 73; RESP 19; TEMP 37.3; O2SAT 96
[2020-04-11] MEDS: hydrALAZINE HCL 20 MG/ML VIAL 10 MG IV PUSH (15:41)
[2020-04-11 17:15] VITALS: BP 152/74
[2020-04-11] MEDS: ONDANSETRON INJ 4 MG/2 ML VIAL IV PUSH (18:44)
[2020-04-11 22:00] VITALS: BP 139/73; PULSE 76; RESP 20; TEMP 36.6; O2SAT 98
[2020-04-12 06:00] VITALS: BP 153/86; PULSE 81; RESP 18; TEMP 36.2; O2SAT 96
[2020-04-12 06:11] LABS: Hematocrit 41.8 % (37.0-47.0); Hemoglobin 13.8 g/dL (12.0-15.0); Mean Corpuscular Hemoglobin 29.8 pg (26-34); Mean Corpuscular Volume 90.3 fl (80-100); Mean Platelet Volume 8.9 fl (7.4-10.4); Platelet Count Result 279 k/mm3 (150-375); Red Blood Count 4.63 M/mm3 (4.2-5.4); Red Cell Distribution Width 13.2 % (11.5-14.5); White Blood Count 8.9 K/mm3 (4.5-10.0)
[2020-04-12 06:26] LABS: Anion Gap 7 mmol/L (8-16); Blood Urea Nitrogen 9 mg/dL (7-17); Calcium 9.3 mg/dL (8.4-10.2); Carbon Dioxide 30 mmol/L (22-30); Chloride 98 mmol/L (98-107); Estimated CRCL calculation 68 ml/min; Estimated Glomerular Filt Rate > 60; Glucose 117 mg/dL (65-105); Potassium 3.7 mmol/L (3.4-5.0); Sodium 135 mmol/L (137-145)
--- NOTE | 2020-04-12 12:01 | PM.PNGS ---
Progress Note: A&P Assessment and Plan (1) Small bowel obstruction: Code(s): K56.609 - Unspecified intestinal obstruction, unspecified as to partial versus complete obstruction Status: Acute Assessment and Plan: I reviewed the SBFT xray from this morning. Will remove NG and start clear liquids. Possibly home tomorrow if able to advance diet safely. (2) Incisional hernia: Code(s): K43.2 - Incisional hernia without obstruction or gangrene Status: Acute (3) Personal history of malignant neoplasm of large intestine: Onset Date: ~09/14/05 Code(s): Z85.038 - Personal history of other malignant neoplasm of large intestine Status: Chronic Subjective Subjective Date/Time Seen: 04/12/20 12:01 Bowels moving. SBFT completed this AM. No nausea or vomiting while NG was clamped. Exam GI: Inspection: obesity and scar GI Palp: Yes Soft to palpation, Yes Tenderness to palpation present (GI) (periumbilical), No Guarding due to palpation present (GI) and Yes Hernia present (periumbilical incisional) Auscultation: normal bowel sounds Objective Data Vital Signs Vital Signs: Vital Signs - 24 hr 04/11/20 14:00 04/11/20 17:15 04/11/20 22:00 Temperature 37.3 C 36.6 C Pulse Rate 73 76 Respiratory Rate 19 20 Blood Pressure 163/97 H 152/74 H 139/73 Pulse Oximetry 96 98 04/12/20 06:00 Temperature 36.2 C L Pulse Rate 81 Respiratory Rate 18 Blood Pressure 153/86 H Pulse Oximetry 96 Intake/Output Intake/Output: Intake & Output 04/09/20 04/10/20 04/11/20 04/12/20 23:59 23:59 23:59 23:59 Intake Total 3150 3200 100 Output Total 671 1662 2075 Balance 5375 -775 -4395 Meds/Results Medications: Active Medications Generic Name Dose Route Start Last Admin Trade Name Freq PRN Reason Stop Dose Admin Hydralazine HCl 10 mg 04/11/20 15:26 04/11/20 15:41 Apresoline Hcl Inj IV PUSH 10 mg Q6H PRN Administration Blood Pressure - High Hydromorphone HCl 0.5 mg 04/10/20 09:12 Dilaudid Inj IV PUSH Q4H PRN Pain Rated 7-10 Potassium Chloride 10 meq/ 1,000 mls @ 100 mls/hr 04/11/20 11:30 04/11/20 23:48 Dextrose/Sodium Chloride IV CONT 100 mls/hr .Q10H RUTH Administration Acetaminophen 1,000 mg in 100 mls @ 400 mls/hr 04/11/20 15:26 04/12/20 00:02 Ofirmev 1,000 Mg Ivpb IVPB 04/12/20 15:27 Infused Q6H PRN Infusion Pain Rated 4-6 Ondansetron HCl 4 mg 04/10/20 09:12 04/11/20 18:44 Zofran Inj IV PUSH 4 mg Q4H PRN Administration Nausea Radiology Results: ITS Impressions Abdomen/Pelvis CT 04/10/20 08:11 IMPRESSION: 1. Recurrent small bowel obstruction at the same transition point immediately distal to a small bowel anastomosis in the right lower quadrant. 2. Two ventral hernias containing loops of the dilated bowel. 3. Small sliding-type hiatal hernia. 4. Stable appearance of chronic perirectal/presacral scarring at the site of a rectal anastomosis. Abdomen X-Ray 04/11/20 08:03 IMPRESSION: 1. No free intraperitoneal gas or dilated gas-filled loops of bowel to suggest obstruction. Of note the dilated small bowel on prior CT was predominantly fluid-filled. Small Bowel X-Ray 04/12/20 10:04 IMPRESSION: 1. No evidence of small bowel obstruction. Labs Labs: Laboratory Results - last 24 hr 04/12/20 04/12/20 05:53 05:53 WBC 8.9 RBC 4.63 Hgb 13.8 Hct 41.8 MCV 90.3 MCH 29.8 MCHC 33.0 RDW 13.2 Plt Count 279 MPV 8.9 Sodium 135 L Potassium 3.7 Chloride 98 Carbon Dioxide 30 Anion Gap 7 L BUN 9 Creatinine 0.80 Estim Creat Clear Calc 68 Estimated GFR > 60 Glucose 117 H Calcium 9.3
[2020-04-12 13:54] VITALS: BP 116/57; PULSE 105; RESP 18; TEMP 36.6; O2SAT 97
[2020-04-12 22:00] VITALS: BP 149/82; PULSE 74; RESP 18; TEMP 37.2; O2SAT 96
[2020-04-13 06:00] VITALS: BP 136/72; PULSE 73; RESP 18; TEMP 36.2; O2SAT 96
--- NOTE | 2020-04-13 12:56 | PM.DS ---
DS: Admitting Diagnosis Admitting Diagnosis Admitting Diagnosis: SBO DS: Discharge Diagnosis Discharge Diagnosis (1) Small bowel obstruction: Code(s): K56.609 - Unspecified intestinal obstruction, unspecified as to partial versus complete obstruction Status: Resolved (2) Incisional hernia: Code(s): K43.2 - Incisional hernia without obstruction or gangrene Status: Acute (3) Personal history of malignant neoplasm of large intestine: Onset Date: ~09/14/05 Code(s): Z85.038 - Personal history of other malignant neoplasm of large intestine Status: Chronic DS: Summary Hospital Course Reason for hospitalization: Small-bowel obstruction. Hospital Course: This is a 64-year-old woman who presented to the emergency department on 04/10/2020 with complaints of abdominal pain with nausea and vomiting. She was found to have evidence of a small-bowel obstruction on CT. This was in a similar location to where she also had a small bowel obstruction in September of 2019. An NG tube was placed in the emergency department and she was admitted to the hospital. NG decompression was continued for the next couple days. She was not showing any significant sign of bowel obstruction resolution, therefore a Gastrografin small bowel follow-through was obtained on 04/12/2020. This showed rapid transit of contrast from the stomach to the colon within 15 minutes. The patient began having bowel movements shortly after. NG tube was removed and she was started on clear liquid diet. She was gradually advanced to a full liquid diet and then to a soft regular diet. She tolerated the regular diet without any bloating or signs of recurrent obstruction. She was discharged on 04/13/2020. Status at Discharge Functional status at discharge: independent ambulation Overall status at discharge: patient is back to baseline Time Spent with Patient Time attestation: Total time spent providing and/or coordinating discharge services: Time spent: Less than 30 minutes Exam Const: General: no acute distress Neck: Neck: supple and no JVD Resp: Effort & Inspection: normal respiratory effort Auscultation: clear to auscultation bilaterally Cardio: Rate: regular rate Rhythm: regular rhythm GI: Inspection: obesity and scar GI Palp: Yes Soft to palpation, No Tenderness to palpation present (GI), No Guarding due to palpation present (GI) and Yes Hernia present (periumbilical incisional) Auscultation: normal bowel sounds Neuro: General: gait normal Motor exam (neuro): Normal motor muscle tone present throughout Extrem: General: normal to inspection Psych: Appearance: grossly normal Mental Status: mental status grossly normal Speech and movement: Normal speech and movement present DS: Data Imaging Radiologist's impression: ITS Impressions Abdomen/Pelvis CT 04/10/20 08:11 IMPRESSION: 1. Recurrent small bowel obstruction at the same transition point immediately distal to a small bowel anastomosis in the right lower quadrant. 2. Two ventral hernias containing loops of the dilated bowel. 3. Small sliding-type hiatal hernia. 4. Stable appearance of chronic perirectal/presacral scarring at the site of a rectal anastomosis. Abdomen X-Ray 04/10/20 09:36 IMPRESSION: 1. Nasogastric tube in stomach. Consider advancement by 2-[address] the proximal side-port definitively below the level of the gastroesophageal junction. Abdomen X-Ray 04/11/20 08:03 IMPRESSION: 1. No free intraperitoneal gas or dilated gas-filled loops of bowel to suggest obstruction. Of note the dilated small bowel on prior CT was predominantly fluid-filled. Small Bowel X-Ray 04/12/20 10:04 IMPRESSION: 1. No evidence of small bowel obstruction. Discharge Plan Discharge Attending physician on discharge: Steven Matta. Discharging Clinician: Steven Matta. Patient Disposition: Home, Self-Care Activity: unlimited Diet: re
== END 2020-04-13 13:27 | disposition home or self-care (01) | DRG 389 ==
LOC: ANHED 09:16 → ANH2MED 10:06
PROVIDERS: General Practice; Admitting Provider Surgery; Emergency Provider Emergency Medicine; PCP Family Medicine; Visit Provider Surgery
DX: K56.609 Unspecified intestinal obstruction, unspecified as to partial versus complete obstruction (principal); N39.0 Urinary tract infection, site not specified; K43.2 Incisional hernia without obstruction or gangrene; Z85.038 Personal history of other malignant neoplasm of large intestine; Z90.710 Acquired absence of both cervix and uterus; E66.9 Obesity, unspecified; Z68.36 Body mass index [BMI] 36.0-36.9, adult
CPT/HCPCS: 36415; 74019; 74177; 74250; 80048; 80053; 81001; 83605; 83690; 85025; 85027; 87077; 87086; 87088; 87186; 96361; 96366; 96367; 96374; 96375; 96376; 99285; G0378; J0131; J0360; J0696; J1170; J2405; J2765; J3480; J7030; Q9967

== ENCOUNTER 2022-10-11 13:52 | Outpatient (CLI) | payer MEDICARE, SELFPAY ==
[2022-10-12 01:06] LABS: Kit Draw Collected
== END 2022-10-11 13:53 | disposition home or self-care (01) ==
LOC: ANHGOSHLAB 13:54
PROVIDERS: PCP Family Medicine; Visit Provider Family Medicine
DX: R03.0 Elevated blood-pressure reading, without diagnosis of hypertension (principal); E66.9 Obesity, unspecified
CPT/HCPCS: 36415

== ENCOUNTER 2022-12-25 13:09 | Outpatient (CLI) | payer MEDICARE, SELFPAY ==
--- NOTE | ~2022-12-25 | DEXA_ITS ---
Bone Density Report Name: ZULAY VIVAR Age: 67 Sex: Female Ethnicity: White Date of : 1955 Indication: postmenopausal; screening for osteoporosis; height loss; cancer; hysterectomy; Referring Provider: ARMANDO AQUINO Study: Bone densitometry was performed. Exam Date: December 25, 2022 Accession number: [id number] Bone Density: Region BMD T-score Z-score Classification AP Spine(L1-L4) 0.988 -0.5 1.5 Normal Femoral Neck (Left) 0.603 -2.2 -0.5 Osteopenia Total Hip (Left) 0.884 -0.5 1.0 Normal Femoral Neck (Right) 0.631 -2.0 -0.2 Osteopenia Total Hip (Right) 0.912 -0.2 1.2 Normal Total Hip Mean 0.898 -0.4 1.1 Normal World Health Organization criteria for BMD impression classify patients as: Normal (T-score at or above -1.0), Osteopenia (T-score between -1.0 and -2.5), or Osteoporosis (T-score at or below -2.5). 10-year Fracture Risk(1): Major Osteoporotic Fracture 11% Hip Fracture 2.1% Reported Risk Factors: [place] (), Neck BMD=0.603, BMI=36.3 (1) FRAX(R) Version 3.08. Fracture probability calculated for an untreated patient. Fracture probability may be lower if the patient has received treatment. Previous Exams: Region Exam Age BMD T-score BMD Change BMD Change Date g/cm2 vs Baseline vs Previous AP Spine (L1-L4) 12/25/2022 67 0.988 -0.5 0.045 (4.7%)* 0.045 (4.7%)* 07/26/2017 61 0.943 -0.9 Total Hip(Left) 12/25/2022 67 0.884 -0.5 -0.021 (-2.3%) -0.021 (-2.3%) 07/26/2017 61 0.905 -0.3 Total Hip(Right) 12/25/2022 67 0.912 -0.2 -0.011 (-1.2%) -0.011 (-1.2%) 07/26/2017 61 0.923 -0.2 *Denotes significance at 95% confidence level, LSC for AP Spine = 0.022 g/cm2, LSC for Total Hip = 0.027 g/cm2 Clinical Information Provided by Patient: Has used the following medications: Vitamin D, Calcium Has the following medical conditions: Cancer, Hysterectomy Patient maximum height was 65 Menopause Age: 50 Drinks caffeinated beverages Onset of menses at age 11 Number of children 2 Impression: The patient has low bone mass, based on the Left Femoral Neck T-score. The patient has an estimated ten-year risk of hip fracture of 2.1% and an estimated ten-year risk of major fracture of 11%, based on the WHO FRAX algorithm. No significant bone loss was observed. Discussion: BONE DENSITY IS LOW AT ONE OR MORE SKELETAL SITES. This patient's lowest T-score is low at one or more skeletal sites
== END 2022-12-25 13:10 | disposition home or self-care (01) ==
LOC: ANHIMG 13:10
PROVIDERS: PCP Family Medicine; Visit Provider Family Medicine
DX: Z78.0 Asymptomatic menopausal state (principal); M85.852 Other specified disorders of bone density and structure, left thigh; M85.851 Other specified disorders of bone density and structure, right thigh
CPT/HCPCS: 77080

== ENCOUNTER 2023-05-14 09:50 | Outpatient (CLI) | payer MEDICARE, SELFPAY ==
[2023-05-14 13:12] LABS: Basophils Percent Auto 0.5 % (0.2-1.2); Eosinophils Absolute Auto 0.4 K/mm3 (0-0.3); Eosinophils Percent Auto 4.5 % (0-4.4); Hematocrit 42.2 % (37.0-47.0); Hemoglobin 13.5 g/dL (12.0-15.0); Immature Granulocyte Absolute 0.04 K/mm3 (0.00-0.031); Immature Granulocyte Percent A 0.5 % (0-0.5); Lymphocytes Absolute Auto 3.42 K/mm3 (0.9-3.2); Lymphocytes Percent Auto 44.1 % (18.3-44.2); Mean Corpuscular Hemoglobin 30.5 pg (26-34); Mean Corpuscular Volume 95.5 fl (80-100); Mean Platelet Volume 9.6 fl (7.4-10.4); Monocytes Absolute Auto 0.6 K/mm3 (0.1-0.6); Monocytes Percent Auto 8.3 % (2.6-8.5); Neutrophils Absolute Auto 3.3 K/mm3 (1.3-6.7); Neutrophils Percent Auto 42.1 % (45.5-73.1); Platelet Count Result 282 k/mm3 (150-375); Red Blood Count 4.42 M/mm3 (4.2-5.4); Red Cell Distribution Width 13.9 % (11.5-14.5); White Blood Count 7.8 K/mm3 (4.5-10.0)
[2023-05-14 13:17] LABS: Alanine Aminotransferase 20 U/L (6-35); Albumin Level 4.3 g/dL (3.5-5.1); Alkaline Phosphatase 90 U/L (38-126); Anion Gap 6 mmol/L (8-16); Aspartate Amino Transferase 34 U/L (14-36); Bilirubin,Total 0.6 mg/dL (0.2-1.3); Blood Urea Nitrogen 21 mg/dL (7-17); Calcium 9.2 mg/dL (8.4-10.2); Carbon Dioxide 27 mmol/L (22-30); Chloride 106 mmol/L (98-107); Cholesterol 190 mg/dL (0-200); Estimated Glomerular Filt Rate > 60; Glucose 89 mg/dL (65-110); HDL Direct 63 mg/dL; Potassium 4.6 mmol/L (3.4-5.0); Sodium 139 mmol/L (137-145); Triglycerides 110 mg/dL (<150)
[2023-05-14 13:28] LABS: LDL Cholesterol Direct 94 mg/dL
[2023-05-14 14:34] LABS: Hepatitis C Virus Antibody Negative (Negative)
[2023-05-14 15:09] LABS: Hemoglobin A1C 5.5 % (<5.7)
== END 2023-05-14 09:51 | disposition home or self-care (01) ==
PROVIDERS: PCP Family Medicine; Visit Provider Physician Assistant
DX: E66.9 Obesity, unspecified (principal); Z11.59 Encounter for screening for other viral diseases; E78.2 Mixed hyperlipidemia; M85.80 Other specified disorders of bone density and structure, unspecified site; R73.01 Impaired fasting glucose; Z79.899 Other long term (current) drug therapy
CPT/HCPCS: 36415; 80053; 80061; 83036; 84443; 85025; 86803

== ENCOUNTER 2023-11-28 09:46 | Outpatient (CLI) | payer MEDICARE, SELFPAY ==
[2023-11-28 12:23] LABS: Alanine Aminotransferase 20 U/L (6-35); Albumin Level 4.5 g/dL (3.5-5.1); Alkaline Phosphatase 94 U/L (38-126); Anion Gap 9 mmol/L (4-12); Aspartate Amino Transferase 61 U/L (14-36); Bilirubin,Total 0.7 mg/dL (0.2-1.3); Blood Urea Nitrogen 18 mg/dL (7-17); Calcium 9.7 mg/dL (8.4-10.2); Carbon Dioxide 22 mmol/L (22-30); Chloride 111 mmol/L (98-107); Cholesterol 187 mg/dL (0-200); Estimated Glomerular Filt Rate > 60; Glucose 101 mg/dL (65-110); HDL Direct 64 mg/dL; Potassium 4.1 mmol/L (3.4-5.0); Sodium 142 mmol/L (137-145); Triglycerides 90 mg/dL (<150)
[2023-11-28 12:35] LABS: LDL Cholesterol Direct 93 mg/dL
[2023-11-28 14:02] LABS: Hemoglobin A1C 5.6 % (<5.7)
== END 2023-11-28 09:47 | disposition home or self-care (01) ==
PROVIDERS: PCP Family Medicine; Visit Provider Family Medicine
DX: R73.01 Impaired fasting glucose (principal); E66.9 Obesity, unspecified; I10 Essential (primary) hypertension
CPT/HCPCS: 36415; 80053; 80061; 83036; 84443

== ENCOUNTER 2024-01-28 08:45 | Outpatient (CLI) | payer MEDICARE, SELFPAY ==
[2024-01-28 13:51] LABS: Alanine Aminotransferase 17 U/L (6-35); Albumin Level 4.1 g/dL (3.5-5.1); Alkaline Phosphatase 84 U/L (38-126); Aspartate Amino Transferase 45 U/L (14-36); Bilirubin,Total 0.7 mg/dL (0.2-1.3)
== END 2024-01-28 08:46 | disposition home or self-care (01) ==
PROVIDERS: PCP Family Medicine; Visit Provider Family Medicine
DX: R94.5 Abnormal results of liver function studies (principal)
CPT/HCPCS: 36415; 80076

== ENCOUNTER 2024-11-13 10:59 | Outpatient (CLI) | payer MEDICARE, SELFPAY ==
--- OUTSIDE RECORDS SUMMARY | 2024-11-13 11:55 | XMS_ITS | Referral Summary ---
Author Organization [facility] Address [address] [place] [address] Care Team Providers Care Lead Based Paint Technician Name Role Phone Lisset Shin MD Primary Care Provider + Allergies No known active allergies Medications cholecalciferol (VITAMIN D-3) 2,000 unit tablet 2.5 tablets (5,000 Units total) daily 2 Active calcium carbonate (CALCIUM 500 ORAL) 600 mg daily 2 Active multivitamin tabletIndicatio ns:Vitamin Deficiency Prevention daily. 7 Active aspirin 81 mg enteric coated tablet Take 1 tablet (81 mg total) by mouth daily Active UNABLE TO FIND Glucosamine Act yaron losartan (COZAAR) 25 mg tablet Take 1 tablet (25 mg total) by mouth daily Active Active Problems Problem Noted Date Diagnosed Date Hx of colon cancer, stage I 05/30/2024 History of colon cancer 03/19/2023 History of rectal cancer 03/19/2023 Intestinal obstruction 07/23/2017 Obesity with body mass index 30 or greater 07/19 Obesity with body mass index 30 or greater 02/06 Polyp of colon 07/25/2013 Encounter for preventive health examination 12/11 Resolved Problems Problem Noted Date Diagnosed Date Resolved Date Rectal cancer (CMS/HCC) 08/14/201802/12 Overview (08/14/2018): Added automatically from request for surgery [id number] Primary malignant neoplasm of colon 01/19/2015 02/22/2019 Malignant neoplasm of rectum (CMS/HCC) 09/10/2009 03/12/2022 History of radiation therapy 08/13/2005 02/22/2019 Immunizations Immunization Administration Dates Next Due Influenza, Quadrivalent, Rec ombinant, Egg Free, Preservative Free, Intramuscular 05/05/2019 Influenza, Quadrivalent, Spl it, Preservative Free, Intramuscular 06/24/2018,05/25/2017 Social History Tobacco Use Types Packs/Day Years Used Date Smoking Tobacco: Never Smokeless Tobacco: Never Tobacco Cessation:Counseling Given: Not Answered Alcohol Use Standard Drinks/Week Comments Yes 0 (1 standard drink = 0.6 oz pur e alcohol) socially AUDIT-C Answer Date Recorded Q1: How often do you have a drink containing alc ohol? Monthly or less 06/12/2024 Q2: How many drinks containi ng alcohol do you have on a typical day when you are drinking? 1 or 2 06/12/2024 Q3: How often do you have si x or more drinks on one occasion? Never 06/12/2024 Personal Safety Answer Date Recorded Have you ever been in or are you currently in a harmful physical or emotional relationship or is someone making you feel afraid or unsafe? 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 Gender Identity Not on file Sexual Orientation Not on file Last Filed Vital Signs Vital Sign Reading Time Taken Comments Blood Pressure 151/92 06/12/2024 1:40 PM CDT Pulse 59 06/12/2024 1:40 PM CDT Temperature 36.1 C (97 F) 06/12/2024 1:20 PM CDT Respiratory Rate 12 06/12/2024 1:40 PM CDT Oxygen Saturation 96% 06/12/2024 1:40 PM CDT Inhaled Oxygen Concentration - - Weight 93.4 kg (206 lb) 05/13/2024 12:00 PM CDT Height 162.6 cm (5' 4 ) 06/12/2024 12:34 PM CDT Body Mass Index 35.47 03/20/2023 8:21 AM CDT Plan of Treatment Not on file Procedures Procedure Name Priority Date/Time Associated Diagnosis Comments COLONOSCOPY 06/12/2024 12:46 PM CDT SCREENING MAMMOGRAM BILATERAL W LAVELL Schedule Routine, Read Routine (OP Routine) 05/01/2024 1:19 PM CDT Screening mammogram, encounter for from Last 3 Months or Most Recently Relevant to Health Maintenance Results * Colonoscopy (06/12/2024 12:46 PM CDT) Anatomical Region Laterality Modality Other Narrative Procedure Note Miguel Nixon MD - 06/12/2024 12:46 PM CDT [facility] Patient Name: Christina Vivar Procedure Date: 06/12/2024 12:46PM Date of : 1955 Admit Type: Outpatient Age: 68 Gender: Female Attending MD: Miguel Nixon M.D. Room: [facility] ENDOSCOPY ROOM 8 Note Status: Finalized Procedure: Colonoscopy Indications: High risk colon cancer surveillance: Personalhistory of colon cancer, Last colonoscopy: August 2018 Referring MD: Lisset Shin M.D. Providers: Miguel Nixon M.D. Medicines: Monitored Anesthesia Care Complications: No immediate complications. Estimated Blood Loss: Estimated blood loss was minimal. Procedure: Pre-Anesthesia Assessment: - Immediately prior to administration ofmedications, the patient was re-assessed for adequacy to receive sedatives. - The risks and benefits of the procedure and the sedation options and risks were discussed with the patient. All questions were answered and informed consent was obtained. The benefits, risks and alternatives of theprocedure and sedation were discussed and informed consentwas obtained. All questions were answered. Please referto the signed informed consent document in the medical record. The scope was passed under direct vision.The [id number] endoscope was introduced through the anus and advanced to the terminal ileum. The colonoscopy was performed without difficulty. The patient tolerated the procedure well. The qualityof the bowel preparation was evaluated using the BBPS (Hiller Bowel Preparation Scale) with scores of:Right Colon = 3, Transverse Colon = 3 and Left Colon = 3 (entire mucosa seen well with no residual staining, small fragments of stool or opaque liquid). Thetotal BBPS score equals 9. The bowel preparation used was GoLYTELY via split dose instruction. The quality of the bowel preparation was excellent. Findings: The perianal and digital rectal examinations were normal. The terminal ileum appeared normal. There was evidence of a prior end-to-end colo-colonic anastomosis inthe rectum. This was patent and was characterized by healthy appearing mucosa. There was a possible sinus tract or fistula but otherwiselooked healthy. The anastomosis was traversed. A 1 mm polyp was found in the descending colon. The polyp was Shannon classification Is (protruding, sessile). The polyp was removed with a jumbo cold forceps. Resection and retrieval were complete. A 1 mm polyp was found in the rectum. The polyp was Parisclassification Is (protruding, sessile). The polyp was removed with a jumbo cold forceps. Resection and retrieval were complete. The exam was otherwise normal throughout the examined colon. Impression: - The examined portion of the ileum was normal. - Patent end-to-end colo-colonic anastomosis, characterized by healthy appearing mucosa. - One 1 mm polyp in the descending colon, removedwith a jumbo cold forceps. Resected and retrieved. - One 1 mm polyp in the rectum, removed with ajumbo cold forceps. Resected and retrieved. Recommendation: - Await pathology results. - Repeat colonoscopy in 5 years for surveillance. - - Contact Information: During normal business hours - Please call theNurse Coordinator: [phone]. After hours, evening, nights, weekends and holidays- Please call the hospital power reactor operator at and ask for the GI fellow international exchange coordinator. Electronically signed by Miguel Nixon MD Miguel Nixon M.D. 06/12/2024 1:23:33 PM . Number of Addenda: 0 Note Initiated On: 06/12/2024 12:46 PM us Miguel Nixon MD ENDOSCOPY PROCEDURES Final Result * Screening Mammogram Bilateral W Lavell (05/01/2024 1:19 PM CDT) Anatomical Region Laterality Modality Breast Bilateral Mammography Narrative 05/01/2024 8:39 PM CDT Mammogram Technique: Bilateral Digital Breast Tomosynthesis, Bilateral C-view 2D Screening mammogram. Views obtained: bilateral craniocaudal and bilateral mediolateral oblique. Computer Aided Detection was performed. Mammogram Findings: The present examination has been compared to prior imaging studies performed at [facility] on 03/02/2020, 03/24/2021 and 03/20/2023. There are scattered areas of fibroglandular density. There is no suspicious abnormality in either breast. Impression: There is no mammographic evidence of malignancy. Annual screening mammography is recommended. OVERALL FINAL ASSESSMENT: BI-RADS CATEGORY 1: Negative. Procedure Note Lisset Brown MD - 05/01/2024 Mammogram Technique: Bilateral Digital Breast Tomosynthesis, Bilateral C-view 2D Screening mammogram. Views obtained: bilateral craniocaudal and bilateral mediolateral oblique. Computer Aided Detection was performed. Mammogram Findings: The present examination has been compared to prior imaging studies performed at [facility] on 03/02/2020, 03/24/2021 and 03/20/2023. There are scattered areas of fibroglandular density. There is no suspicious abnormality in either breast. Impression: There is no mammographic evidence of malignancy. Annual screening mammography is recommended. OVERALL FINAL ASSESSMENT: BI-RADS CATEGORY 1: Negative. us Self Screening Mammogram IMG MAMMO PROCEDURES Fi nal Result from Last 3 Months or Most Recently Relevant to Health Maintenance Insurance AETNA MEDICARE [facility]OLD [facility] Address: [address] [place] [address] [facility] CHOICE PLUS MEDICARE [facility] AETNA MEDICARE GOLD Advance Directives For more information, please contact: [phone] * Full Code (Latest Code Status on File) Date Activated Date Inactivated Comments 06/12/2024 12:06 PM 06/12/2024 5:48 PM * Full Code Date Activated Date Inactivated Comments 08/28/2018 9:50 AM 08/28/2018 3:57 PM Care Teams Lead Based Paint Technician Relationship Specialty Start Date End Date Lisset Shin MD PCP - General Family Medicine 03/09/23
--- OUTSIDE RECORDS SUMMARY | 2024-11-13 11:55 | XMS_ITS | Clinical Summary ---
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
--- OUTSIDE RECORDS SUMMARY | 2024-11-13 11:55 | XMS_ITS | Encounter Summary ---
Author Organization [facility] Address 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
--- OUTSIDE RECORDS SUMMARY | 2024-11-13 11:55 | XMS_ITS | Clinical Summary ---
Author Organization [facility] Address [address] [place] [address] Care Team Providers Care Delivery Crew Member Name Role Phone Lisset Shin MD Primary [...] (08/14/2018): Added automatically from request for surgery [id number] Primary malignant neoplasm of colon 01/19/2015 02/22/2019 Malignant neoplasm of rectum (CMS/HCC) 09/10/2009 03/12/2022 History of radiation therapy 08/13/2005 02/22/2019 Immunizations Immunization Administration Dates Next Due Influenza, Quadrivalent, Rec ombinant, Egg Free, Preservative Free, Intramuscular 05/05/2019 Influenza, Quadrivalent, Spl it, Preservative Free, Intramuscular 06/24/2018,05/25/2017 Surgical History Surgery Date Site/Laterality Comments GA DELIVERY ONLY Section - (Added by TW Conv) SPLENECTOMY Splenectomy - (Added by TW Conv) GA TOTAL ABDOMINAL HYSTERECT W/WO RMVL TUBE OVARY Hysterectomy - (Added by TW Conv) COLON SURGERY COLONOSCOPY HYSTERECTOMY SECTION RIGHT COLECTOMY 08/13/2005 - 08/12/2006 ILEOSTOMY CLOSURE 08/13/2005 - 08/12/2006 Medical History Medical History Date Comments Primary malignant neoplasm (HCC) Cancer - rectal-removed 11/13/05 (Added by TW Conv) Colon cancer (HCC) 2005 History of chemotherapy 2005 History of radiation therapy 2005 Family History Medical History Relation Name Comments Prostate cancer Father Breast cancer Maternal Grandmother Family history of malignant neoplasm of breast - (Added by TW Conv) Breast cancer Mother Family history of malignant neoplasm of breast - (Added by [employer] Conv) Colon cancer Mother Family history of colon cancer - (Added by [employer] Conv) Cancer Other Cancer - mother (Added by [employer] Conv) Relation Name Status Comments Father Maternal Grandmother Mother Alive Other Social History Tobacco Use Types Packs/Day Years [...] on file 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 Gender Identity Not on file Sexual Orientation Not on file Obstetrics History Para Term AB IAB SAB Ectopic Multiple Livin g Live Births 2 2 2 2 2 Date Outcome GA Total Labor Labor/2nd/3rd Weight Sex Type Anes PTL Elaine A1 A5 Name Clin Term Term Last Filed Vital Signs Vital Sign Reading [...] 03/20/2023 8:21 AM CDT Plan of Treatment Health Maintenance Due Date Last Done Comments Depression Screening 1955 Hepatitis C Screening 1955 Osteoporosis Screening-Bone Density Scan 1955 DTaP/Tdap/Td Vaccine (1 - Tdap) 1964 Hepatitis B Screening 11/03/1971 Pneumococcal vaccine 65+ (1 of 1 - PCV) 11/03/2003 Zoster Vaccine (1 of 2) 11/03/2003 Well Visit 65+ 2018 Influenza Vaccine (#1) 2024 9, 06/24/2018, 05/25/2017 Breast Cancer Screening-Mammogram 05/01/2025 05/01/2024, 03/20/2023, 03/24/2021, Additional history exists Fall Risk Assessment 06/12/2025 06/12/2024 Colon Cancer Screening-Colonoscopy 06/12/2034 06/12/2024, 08/28/2018, 09/11/2013 Colon Cancer Screening-CT Colonography Discontinued 06/12/2024, 08/28/2018, 09/11/2013 Colon Cancer Screening-DNA Stool Discontinued 06/12/2024, 08/28/2018, 09/11/2013 Colon Cancer Screening-FIT Discontinued 06/12, 08/28/2018, 09/11/2013 Colon Cancer Screening-Sigmoidoscopy Discontinued 06/12/2024, 08/28/2018, 09/11/2013 Procedures Procedure Name Priority Date/Time Associated Diagnosis [...] Female Attending MD: Miguel Nixon M.D. Room: [facility] ENDOSCOPY ROOM 8 Note Status: Finalized Procedure: [...] The scope was passed under direct vision.The [id number] endoscope was introduced through the anus and advanced to the terminal ileum. The colonoscopy was performed without difficulty. The patient tolerated the procedure well. The qualityof the bowel preparation was evaluated using the BBPS (Alexander Bowel Preparation Scale) with scores of:Right Colon [...] business hours - Please call theNurse Coordinator: [phone]. After hours, evening, nights, weekends and holidays- Please call the hospital hoop punch operator helper at and ask for the GI fellow communication skills instructor. Electronically signed by Miguel Nixon MD Miguel Nixon M.D. 06/12/2024 1:23:33 PM . Number of Addenda: 0 Note Initiated On: 06/12/2024 12:46 PM Miguel Nixon MD ENDOSCOPY PROCEDURES Final Result [...] compared to prior imaging studies performed at [facility] on 03/02/2020, 03/24/2021 and 03/20/2023. There [...] compared to prior imaging studies performed at [facility] on 03/02/2020, 03/24/2021 and 03/20/2023. There [...] to Health Maintenance Insurance AETNA MEDICARE GOLD [facility] CHOICE PLUS MEDICARE [facility] AETNA MEDICARE GOLD Advance Directives For more information, please contact: [phone] * Full Code (Latest Code Status on File) Date Activated Date Inactivated Comments 06/12/2024 12:06 PM 06/12/2024 5:48 PM * Full Code Date Activated Date Inactivated Comments 08/28/2018 9:50 AM 08/28/2018 3:57 PM Care Teams Delivery Crew Member Relationship Specialty Start Date End Date Lisset Shin MD PCP - General Family Medicine 03/09/23
--- OUTSIDE RECORDS SUMMARY | 2024-11-13 11:55 | XMS_ITS | Encounter Summary ---
Author Organization [facility] Address 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
--- OUTSIDE RECORDS SUMMARY | 2024-11-13 11:55 | XMS_ITS | Continuity of Care Document ---
Author Organization [facility] Address [address] [place] [address] [address] [place] [address] Phone Care Team Providers Care Blindstitch Lapel Padder Name Role Phone Mederos OD, Beni Unavailable Unavailable Procedures Procedure Date Eye Exam & Treatment Refraction Advance Directives Directive Yes / No Effective Date File Name No Information Encounters Encounter Description Practice Location Reason(s) For Visit Diagnoses Date Provider Providers Copied on Encounter [facility], [address] [place] [address] [address], [place], [place], [id number], [place] tel:[phone] [facility] No Information 7-200 7 Mederos OD Beni. [address] , [address], [place], [address], [place]. tel:[phone] Family History Family Member Type Diagnosis Age At Onset No Information Payers Payer name Insurance type Covered constitution party ID Authoriza tion(s) No Information Social History Type Description Quantity Date Captured Comments Sex Female Smoking Status No Information Chief Complaint And Reason For Visit No Information Reason For Referral Reason For Referral No Information History Of Present Illness Encounter Date Complaint History Of Prese nt Illness No Information Functional Status Date Functional Assessmen t No Information Instructions Date Instruction Additional Infor mation No Information Assessments Type Assessment Date No Information Patient Care Teams Name Effective Dates (start - stop) Status Members No Information
[2024-11-13 19:16] LABS: Basophils Percent Auto 0.5 % (0.2-1.2); Eosinophils Absolute Auto 0.3 K/mm3 (0-0.3); Eosinophils Percent Auto 3.6 % (0-4.4); Hematocrit 42.9 % (37.0-47.0); Hemoglobin 13.8 g/dL (12.0-15.0); Immature Granulocyte Absolute 0.04 K/mm3 (0.00-0.031); Immature Granulocyte Percent A 0.5 % (0-0.5); Lymphocytes Absolute Auto 3.86 K/mm3 (0.9-3.2); Lymphocytes Percent Auto 45.3 % (18.3-44.2); Mean Corpuscular HGB Conc 32.2 g/dl (32-36); Mean Corpuscular Hemoglobin 30.5 pg (26-34); Mean Corpuscular Volume 94.7 fl (80-100); Mean Platelet Volume 9.5 fl (7.4-10.4); Monocytes Absolute Auto 0.6 K/mm3 (0.1-0.6); Monocytes Percent Auto 6.9 % (2.6-8.5); Neutrophils Absolute Auto 3.7 K/mm3 (1.3-6.7); Neutrophils Percent Auto 43.2 % (45.5-73.1); Platelet Count Result 285 k/mm3 (150-375); Red Blood Count 4.53 M/mm3 (4.2-5.4); Red Cell Distribution Width 13.6 % (11.5-14.5); White Blood Count 8.5 K/mm3 (4.5-10.0)
[2024-11-13 19:24] LABS: Alanine Aminotransferase 19 U/L (6-35); Albumin Level 4.3 g/dL (3.5-5.1); Alkaline Phosphatase 99 U/L (38-126); Anion Gap 11 mmol/L (4-12); Aspartate Amino Transferase 66 U/L (14-36); Bilirubin,Total 0.5 mg/dL (0.2-1.3); Blood Urea Nitrogen 17 mg/dL (7-17); Calcium 9.2 mg/dL (8.4-10.2); Carbon Dioxide 24 mmol/L (22-30); Chloride 105 mmol/L (98-107); Cholesterol 200 mg/dL (0-200); Estimated Glomerular Filt Rate > 60; Glucose 77 mg/dL (65-110); HDL Direct 61 mg/dL; Potassium 4.2 mmol/L (3.4-5.0); Sodium 140 mmol/L (137-145); Triglycerides 147 mg/dL (<150)
[2024-11-13 19:41] LABS: LDL Cholesterol Direct 98 mg/dL
[2024-11-13 20:07] LABS: Vitamin D 25 Hydroxy 32.3 ng/mL
[2024-11-13 20:49] LABS: Hemoglobin A1C 5.7 % (<5.7)
== END 2024-11-13 11:00 | disposition home or self-care (01) ==
LOC: ANHGOSHLAB 11:00
PROVIDERS: PCP Family Medicine; Visit Provider Family Medicine
DX: E78.2 Mixed hyperlipidemia (principal); Z85.038 Personal history of other malignant neoplasm of large intestine; Z90.81 Acquired absence of spleen; R73.9 Hyperglycemia, unspecified; Z78.0 Asymptomatic menopausal state; I10 Essential (primary) hypertension
CPT/HCPCS: 36415; 80053; 80061; 82306; 83036; 85025

== ENCOUNTER 2024-11-25 14:34 | Outpatient (CLI) | payer MEDICARE, SELFPAY ==
--- NOTE | ~2024-11-25 | XR_ITS ---
Right Knee Technique: AP, lateral, and sunrise views were obtained. Clinical History: Injury Findings: No fracture or dislocation is seen. Osseous alignment is anatomic. Joint spaces are preserv ed without degenerative or erosive change. Soft tissues are unremarkable. No joint effusion is seen. Impression: Unremarkable right knee radiographs. Reviewed, dictated and finalized at location . Impression: Unremarkable right knee radiographs.
== END 2024-11-25 14:35 | disposition home or self-care (01) ==
LOC: GOSHIMG 14:35
PROVIDERS: PCP Family Medicine; Visit Provider Student in an Organized Health Care Education/Training Program
DX: S89.91XA Unspecified injury of right lower leg, initial encounter (principal); X58.XXXA Exposure to other specified factors, initial encounter
CPT/HCPCS: 73562

== ENCOUNTER 2024-12-09 08:20 | Outpatient (CLI) | payer MEDICARE, SELFPAY ==
--- NOTE | ~2024-12-09 | MR_ITS ---
MRI of the right knee Clinical history: Pain Technique: Coronal proton density and proton density-weighted images, sagittal proton-density and T2 fat-sat images, and axial proton-density fat-saturated images were acquired. Findings: Anterior and posterior cruciate ligaments are intact. Medial collateral ligament and the la teral collateral ligament, as are intact. Popliteus tendon is intact. There is a radial tear at the posterior root of the medial meniscus. No definite lateral meniscal tea r seen. There is extensive high-grade chondromalacia patella, especially at the apex and medial facet. There is extensive moderate chondral thinning of the medial femoral condyle centrally. There is mild amorph ous marrow edema at the medial tibial plateau, likely reactive/stress response. Extensor mechanism is intact. Moderate joint effusion present. No Garcia's cyst. Impression: Radial tear of the posterior root of the medial meniscus. 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 Probable mild stress response marrow edema in the medial tibial plateau. Moderate joint effusion. Reviewed, dictated and finalized at location . Impression: Radial tear of the posterior root of the medial meniscus. 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 Probable mild stress response marrow edema in the medial tibial plateau. Moderate joint effusion.
== END 2024-12-09 08:21 | disposition home or self-care (01) ==
LOC: GOSHIMG 08:21
PROVIDERS: PCP Family Medicine; Visit Provider Student in an Organized Health Care Education/Training Program
DX: S83.241A Other tear of medial meniscus, current injury, right knee, initial encounter (principal); X58.XXXA Exposure to other specified factors, initial encounter; M25.461 Effusion, right knee
CPT/HCPCS: 73721